=== PATIENT | male | born 1950 | race Caucasian/White ===

== ENCOUNTER 2020-08-28 10:34 | Inpatient (IN) | payer OTHER ==
[~2020-08-28] VITALS: Ht 180.3 cm; Wt 74.4 kg
[~2020-08-28 10:34] MED LIST: ASPIR 8181 MG PO; BUSPIRONE HCL10 MG PO; COREG6.25 MG PO; COZAAR 50 MG TA50 M1 PO; D3-5050000 UNIT PO; IRON325 PO; KEPPRA 500 MG500 M1 PO; METAMUCIL PAC1 UDPKT PO; NEURONTIN600 MG PO; PLAVIX 75 MG TA75 M1 PO; PRAVACHOL40 MG PO; PROTONIX40 M4 PO; UNICOMPLEX M TA1 TA1 PO; XANAX1 MG PO
[2020-08-28 10:46] VITALS: BP 126/59
[2020-08-28] MEDS ORDERED: MELOXICAM5 MG PO (10:50)
[2020-08-28 11:17] LABS: ABSOLUTE LYMPHOCYTES 1.1 thou/uL (0.8-5.3); ABSOLUTE MONOCYTES 0.4 thou/uL (0.0-1.2); ABSOLUTE NEUTROPHILS 5.5 thou/uL (1.6-8.1); BASOPHILS 0.4 %; EOSINOPHILS 0.6 %; HEMATOCRIT 37.1 % (42.0-52.0); HEMOGLOBIN 12.6 gm/dL (14.0-18.0); LYMPHOCYTES 15.9 %; MCH 31.4 pg (26.0-34.0); MCV 92.5 fL (80.0-100.0); MONOCYTES 5.6 %; NUCLEATED RBCS 0 /100WBC; PLATELET COUNT* 174 thou/uL (150-400); POLYS 77.5 %; RBC 4.01 mil/uL (4.50-6.00); RDW-CV 13.3 % (10.5-14.5)
[2020-08-28 11:28] LABS: CREATININE 1.9 mg/dL (0.6-1.3); POTASSIUM 3.9 mmol/L (3.5-5.1)
[2020-08-28 11:32] LABS: APTT 28.1 Seconds (25.0-31.3); PROTIME 10.7 Seconds (9.20-11.50)
[2020-08-28 11:39] LABS: ALBUMIN 3.3 g/dL (3.4-5.0); TOTAL BILIRUBIN 0.5 mg/dL (<0.1-1.0); TOTAL PROTEIN 6.8 g/dL (6.4-8.2)
[2020-08-28 12:28] LABS: URINE BILIRUBIN NEGATIVE (Negative); URINE BLOOD NEGATIVE (Negative); URINE CLARITY CLEAR; URINE COLOR YELLOW; URINE GLUCOSE-RANDOM NEGATIVE (Negative); URINE KETONES NEGATIVE (Negative); URINE LEUKOCYTES-REFLEX NEGATIVE (Negative); URINE NITRITE-REFLEX NEGATIVE (Negative); URINE PROTEIN TRACE (Negative); URINE SPECIFIC GRAVITY 1.025 (1.005-1.030); URINE UROBILINOGEN 0.2 E.U./dl (0.2-1.0)
--- NOTE | 2020-08-28 14:42 | EKG ---
[place] [address] ELECTROCARDIOGRAM REPORT Name: SEAN GRAFF Room: [place] [address] ADM IN [facility]#: [id number] Admission: 08/28/20 Attend Phys: Francis Alonso Discharge: Date of : 50 Date of Service: 08/28/20 1046 Report #: [id number] THIS REPORT FOR: //name// [facility] ED Test Date: 2020-08-28 Test Time: 10:46:00 Pat Name: SEAN GRAFF Department: Room: [facility] Gender: M [employer]ting [employer] Operator: : 1950 Requested By: Aramis Perez Order Number: [id number] MD: Tani Rodriguez Measurements Intervals [place] Rate: 54 P: 58 CT: 161 QRS: 40 QRSD: 96 T: 187 QT: 412 QTc: 391 Interpretive Statements Sinus rhythm Nonspecific repol abnormality, diffuse leads No previous ECG available for comparison Electronically Signed On 08-28-2020 14:42:19 FOUNDRY HAND by Tani Rodriguez [email or web address] <ELECTRONICALLY SIGNED> By: Tani Rodriguez MD, [facility] 08/28/20 1442 1046 1046 Tani Rodriguez MD, [facility] /EPI
[2020-08-28 20:05] VITALS: BP 146/61
[2020-08-28 20:15] VITALS: BP 164/58
[2020-08-29] VITALS: BP 141/80
[2020-08-29 04:52] VITALS: BP 135/90
[2020-08-29 08:01] VITALS: BP 135/78
[2020-08-29 08:57] LABS: CALCIUM 8.5 mg/dL (8.5-10.1); CREATININE 1.3 mg/dL (0.6-1.3); POTASSIUM 4.2 mmol/L (3.5-5.1)
[2020-08-29 10:20] VITALS: BP 135/90
== END 2020-08-29 11:32 | disposition home or self-care (01) | DRG 177 ==
LOC: M.ERS 10:34 → M.TBA-ER 13:32 → M.ORTHSURG 20:12
PROVIDERS: Family Medicine; ADMIT Internal Medicine; ATTEND Internal Medicine
DX: U07.1 COVID-19 (principal); N17.0 Acute kidney failure with tubular necrosis; J96.01 Acute respiratory failure with hypoxia; J12.82 Pneumonia due to coronavirus disease 2019; J44.9 Chronic obstructive pulmonary disease, unspecified; I10 Essential (primary) hypertension; E78.5 Hyperlipidemia, unspecified; I25.10 Atherosclerotic heart disease of native coronary artery without angina pectoris; T50.995A Adverse effect of other drugs, medicaments and biological substances, initial encounter; I73.9 Peripheral vascular disease, unspecified; Z79.82 Long term (current) use of aspirin; Z79.899 Other long term (current) drug therapy; Z88.5 Allergy status to narcotic agent; Z87.891 Personal history of nicotine dependence; Y92.89 Other specified places as the place of occurrence of the external cause

== ENCOUNTER → 2021-01-15 | Outpatient (CLI) | payer OTHER ==
[~2021-01-15] MED LIST changes: +MELOXICAM5 MG PO
[2021-01-15 12:28] LABS: CREATININE 1.5 mg/dL (0.6-1.3)
== END ==
LOC: M.LAB 12:00 → M.CT 13:00
PROVIDERS: ATTEND Surgery Vascular Surgery
DX: I77.819 Aortic ectasia, unspecified site (principal); I70.8 Atherosclerosis of other arteries; I70.223 Atherosclerosis of native arteries of extremities with rest pain, bilateral legs; J98.11 Atelectasis

== ENCOUNTER → 2021-02-26 | Outpatient (CLI) | payer OTHER | END | disposition home or self-care (01) | LOC: M.ULTRA 11:26 | PROVIDERS: ATTEND Surgery Vascular Surgery | DX: I65.23 Occlusion and stenosis of bilateral carotid arteries (principal) ==